=== PATIENT | female | born 2000 | race Caucasian/White ===

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

== ENCOUNTER 2025-04-19 10:43 | Outpatient (AMB) | payer OTHER, SELFPAY ==
--- NOTE | 2025-04-19 10:52 | MHC.PC.OV ---
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 PE Intake Note: New patinet visit Interactive Account Manager Required: No Allergies No Known Allergies Allergy (Verified 04/19/25 10:53) Tobacco use date assessed: 04/19/25 Dental Screening Dental Screen Date: 04/19/25 Did you have a dental visit in the last 12 months?: Yes Did you have a dental problem in the last 6 months where you did not have access to dental care?: No Was dental information given to patient?: Patient has dentist HPI HPI Comments History of Present Illness Details The patient is a 24 year old female with a past medical history of anxiety, allergies [facility] Just graduated college. Currently working for [employer] History of anxiety managing fairly well on just prn vistaril at moment. Has been on medications in the past. Seasonal allergies. On romeo Declines lab work Tdap 06/2015 ROS CONSTITUTIONAL: Denies weight loss, fever and chills. HEENT: Denies changes in vision and hearing. RESPIRATORY: Denies SOB and cough. CV: Denies palpitations and CP GI: Denies abdominal pain, nausea, vomiting and diarrhea. : Denies dysuria and urinary frequency. MSK: Denies new myalgia and joint pain. SKIN: Denies rash and pruritus. NEUROLOGICAL: Denies headache PSYCHIATRIC: Denies recent changes in mood. PHYSICAL EXAM: GENERAL: Alert and oriented x 3. NAD EYES: EOMI. Anicteric. HENT: Moist mucous membranes. No scleral icterus. No cervical lymphadenopathy. LUNGS: Clear to auscultation bilaterally. CARDIOVASCULAR: Regular rate and rhythm. No murmur. No JVD. ABDOMEN: Soft, non-tender +bs EXTREMITIES: No edema. Non-tender. SKIN: No rashes or lesions. Warm. NEUROLOGIC: No focal neurological deficits. CN II-XII grossly intact PSYCHIATRIC: Cooperative. Appropriate mood and affect [facility] Surgical History No pertinent past surgical history Family History Other FH: mental illness Social History Housing: House Alcohol intake: current Patient Tobacco Use Status: Never used Tobacco e-Cigarette/Vaping Use: Never Used Second Hand Smoke Exposure: No service: No Current occupational status: employed Current occupation: [employer] at [employer] Current occupational exposures/hazards: No Cognitive needs: No Hearing needs: No Vision needs: No Questionnaire PHQ-9 Over the last 2 weeks, how often have you been bothered by any of the following problems? 1. Little interest or pleasure in doing things: not at all 2. Feeling down, depressed, or hopeless: not at all 3. Trouble falling or staying asleep, or sleeping too much: not at all 4. Feeling tired or having little energy: not at all 5. Poor appetite or overeating: not at all 6. Feeling bad about yourself - or that you are a failure or have let yourself or your family down: not at all 7. Trouble concentrating on things, such as reading the newspaper or watching television: not at all 8. Moving or speaking so slowly that other people could have noticed. Or the opposite - being so fidgety or restless that you have been moving around a lot more than usual: not at all 9. Thoughts that you would be better off or of hurting yourself in some way: not at all Total score: 0 Depression Screening Interpretation: Negative Depression Screening Done: Yes 68577 - PHQ-9 Billing: Yes Source: Developed by Drs. See Goldsmith, Janice Mead, Magdi Law and colleagues, with an educational adeola from [employer]. Thrive Questionnaire Date Thrive assessed: 04/19/25 I am a: Patient What is your living situation today?: I have a steady place to live Within the past 12 months, did the food you bought not last and you didn't have the money to get more?: Often true Within the past 12 months, did you worry whether your food would run out before you got money to buy more?: Never true Do you have trouble paying for medicines?: No Do you have trouble getting transportation to medical appointments?: No Do you have trouble paying your heating and electricity bill?: No Do you have trouble taking care of your child, family member or friend?: No Do you have trouble with day-to-day activities such as bathing, preparing meals, shopping, managing finances, etc.?: No Are you currently unemployed and looking for a job?: No Are you interested in more education?: No Please select the resources that you would like help with: None Currently or been in a relationship where the following occur: No concerns reported THRIVE Score: 1 AUDIT C Alcohol Use Questionnaire (AUDIT-C) 1. How often do you have a drink containing alcohol?: 2-4 times a month 2. How many drinks containing alcohol do you have on a typical day when you are drinking?: 3 or 4 3. How often do you have six or more drinks on one occasion?: Never Total Score: 3 TRIPP-7 AMB Questionnaire TRIPP-7 Date TRIPP - 7 assessed: 04/19/25 Feeling nervous, anxious, or on edge: 0 = Not at all Not being able to stop or control worryin = Not at all Worrying too much about different things: 0 = Not at all Trouble relaxin = Not at all Being so restless that it is hard to sit still: 0 = Not at all Becoming easily annoyed or irritable: 0 = Not at all Feeling afraid as if something awful might happen: 0 = Not at all Total TRIPP-7 score (0-4 normal; 5-9 mild; 10-14 moderate; 15-21 severe): 0 Source: Developed by Drs. See Goldsmith, Janice Mead, Magdi Law and colleagues, with an educational adeola from [employer]. TRIPP-7 Assessment Billing TRIPP-7 Assessment Tool: TRIPP-7 Assessment 93105 Physical exam (Primary Care) Vital Signs: Last Vital Signs Temp 98.2 F 04/19/25 10:58 Pulse 101 H 04/19/25 10:58 Resp 12 04/19/25 10:58 BP 102/70 04/19/25 10:58 Pulse Ox 98 04/19/25 10:58 Oxygen Delivery Method Room Air 04/19/25 10:58 BMI result Body Mass Index 21.5 Tobacco/Smoking Status: Tobacco use Status Tobacco use date assessed 04/19/25 04/19/25 11:03 Patient Tobacco Use Status Never used Tobacco 04/19/25 11:03 e-Cigarette/Vaping Use Never Used 04/19/25 11:03 PHQ-9: PHQ-9 Score PHQ-9: Total score 0 04/19/25 11:08 Depression Screening Interpretation: Negative Thrive Assessment: Date of Thrive Assessment Date Thrive assessed 04/19/25 04/19/25 11:03 Currently or been in a relationship where the following occur: No concerns reported Coding Level of Care Code New Pt Level 4 (99568) Diagnoses Encounter to establish care Z76.89 Generalized anxiety disorder F41.1 Environmental allergies Z91.09 Additional Codes TRIPP-7 Assessment Billing - TRIPP-7 Assessment Tool: TRIPP-7 Assessment 82255 ([id number]) PHQ-9 - 10239 - PHQ-9 Billing: Yes ([id number]) Assessment & Plan Assessment & Plan (1) Encounter to establish care: Code(s): Z76.89 - Persons encountering health services in other specified circumstances Category: Medical (2) Generalized anxiety disorder: Code(s): F41.1 - Generalized anxiety disorder Category: Medical (3) Environmental allergies: Code(s): Z91.09 - Other allergy status, other than to drugs and biological substances Category: Medical Plan 24 year old to establish care Past medical, surgical, social reviewed Anxiety-adequately controlled on current medication Seasonal allergies-might consider future referral
[2025-04-19 10:58] VITALS: BP 102/70; PULSE 101; RESP 12; TEMP 36.8; O2SAT 98; BMI 21.5
--- OUTSIDE RECORDS SUMMARY | 2025-04-19 11:48 | XMS_ITS ---
Author Name [facility] Organization Unknown Encounters Encounter Type Encounter Reason Primary Diagnosis Location Date Ambulatory Other chest pain Other chest pain [facility] Compliance Control 04/02/2025 Ambulatory Acute cough Acute cough [facility] 03/28/2025 Ambulatory Acute pansinusitis, unspecified Acute pansinusitis, unspecified [facility] 01/22/2025 Care Team Organization Name Specialty Phone Email Start Date End [facility] [employer] 01/26/2025 [facility] 01/23/2025
== END 2025-04-19 11:18 | disposition home or self-care (01) ==
LOC: HO.HMCFM 10:43
PROVIDERS: PCP Internal Medicine; Visit Provider Internal Medicine
DX: Z76.89 Persons encountering health services in other specified circumstances (principal); F41.1 Generalized anxiety disorder; Z91.09 Other allergy status, other than to drugs and biological substances

== ENCOUNTER → 2025-04-19 10:43 | Outpatient (BNVA) | payer OTHER, SELFPAY | PROVIDERS: PCP Internal Medicine; Visit Provider Internal Medicine | DX: Z00.00 Encounter for general adult medical examination without abnormal findings (principal); F41.1 Generalized anxiety disorder; Z76.89 Persons encountering health services in other specified circumstances; Z91.09 Other allergy status, other than to drugs and biological substances | CPT/HCPCS: 96127; 99202 ==